=== PATIENT | female | born 1995 | race Two or more races ===

== ENCOUNTER → 2020-05-14 | Emergency (ER) | payer OTHER ==
[~2020-05-14] VITALS: Ht 162.6 cm; Wt 63.0 kg
[~2020-05-14] MED LIST: FOLIC ACID20 MG; PEPCID40 MG PO; ZOFRAN8 MG PO
== END | disposition home or self-care (01) ==
LOC: ER 00:56
DX: O21.0 Mild hyperemesis gravidarum (principal); Z34.01 Encounter for supervision of normal first pregnancy, first trimester